=== PATIENT | male | born 1985 ===

== ENCOUNTER 2020-06-01 05:03 | Day surgery (SDC) | payer OTHER ==
[2020-06-01] VITALS (8 sets, daily range): BP systolic 92–115; BP diastolic 55–69
[~2020-06-01] VITALS: Ht 175.3 cm; Wt 81.0 kg
[~2020-06-01 05:03] MED LIST: ACET-2119 PO; IBUP-1984 PO; LEVA0.6319 NEB; OMEP40CA13 PO; ringers solution, lacted 1,000 ML IV SCH
[2020-06-01] MEDS ORDERED: ceFAZolin 2gm in dextrose, iso 50 ML IV ONE (05:30)
[2020-06-01] MEDS ORDERED: famotidine 20mg tablet PO ONE (05:30)
[2020-06-01 07:49] LABS: BASOPHILS # (AUTO) 0.1 X10'3 (0-0.2); BASOPHILS % (AUTO) 1.2 % (0-1); EOSINOPHILS # (AUTO) 0.1 X10'3 (0-0.9); EOSINOPHILS % (AUTO) 1.5 % (0-6); HEMATOCRIT 39.5 % (42.0-52.0); HEMOGLOBIN 13.3 g/dl (14.0-17.9); LYMPHOCYTES # (AUTO) 1.2 X10'3 (1.1-4.8); LYMPHOCYTES % (AUTO) 27.7 % (21-51); MEAN CORPUSCULAR HGB CONC 33.6 g/dL (33.0-36.5); MEAN CORPUSCULAR VOLUME 89.1 FL (78-98); MEAN PLATELET VOLUME 7.6 FL (7.4-10.4); MONOCYTES # (AUTO) 0.5 X10'3 (0-0.9); MONOCYTES % (AUTO) 11.4 % (2-12); NEUTROPHILS # (AUTO) 2.6 X10'3 (1.8-7.7); NEUTROPHILS % (AUTO) 58.2 % (42-75); PLATELET COUNT 243 X10'3 (140-440); RED BLOOD COUNT 4.43 X10'6 (4.70-6.10); RED CELL DISTRIBUTION WIDTH 14.5 % (11.5-14.5); WHITE BLOOD COUNT 4.4 X10'3 (4.5-11.0)
[2020-06-01 08:05] LABS: ALANINE AMINOTRANSFERASE 84 U/L (12-78); ALBUMIN 4.3 G/DL (3.4-5.0); ALBUMIN/GLOBULIN RATIO 1.4 (1.1-1.5); ALKALINE PHOSPHATASE 74 IU/L (46-116); ANION GAP 8 (8-16); ASPARTATE AMINO TRANSFERASE 38 U/L (10-37); BILIRUBIN,TOTAL 0.6 MG/DL (0.1-1.0); BLOOD UREA NITROGEN 15 MG/DL (7-18); BUN/CREATININE RATIO 17.9 (5.4-32.0); CALCIUM 8.8 MG/DL (8.5-10.1); CHLORIDE 106 MMOL/L (99-107); CREATININE 0.84 MG/DL (0.60-1.10); GLUCOSE 98 MG/DL (70-104); POTASSIUM 3.9 MMOL/L (3.5-5.1); SODIUM 141 MMOL/L (135-145); TOTAL CARBON DIOXIDE 26.9 MMOL/L (24-32); TOTAL PROTEIN 7.4 G/DL (6.4-8.2); eGFR > 90 ML/MIN
[2020-06-01] MEDS ORDERED: epiNEPHrine 1 mg/ml 30ml MDV ONE (09:24)
[2020-06-01] MEDS ORDERED: BUPIVAcaine/PF 2.5mg/ml (0.25%) 10ml vial ONE (09:58)
[2020-06-01] MEDS ORDERED: fentaNYL/PF 50MCG/1 ML 2ML syringe ONE (10:14)
[2020-06-01] MEDS ORDERED: MIDAZolam 5mg/5ml vial ONE (10:15)
[2020-06-01] MEDS ORDERED: ringers solution, lacted 1,000 ML IV SCH (11:26)
[2020-06-01] MEDS ORDERED: meperidine/PF 25mg/ml syringe IV PRN ×3 (11:30)
[2020-06-01] MEDS ORDERED: proCHLORperazine 10 MG/2 ml inj IV PRN (11:30)
[2020-06-01] MEDS ORDERED: morphine 4 MG/ML inj SYRINge IV PRN (11:30)
[2020-06-01] MEDS ORDERED: ondansetron/PF 4mg/2ml inj IV PRN (11:30)
[2020-06-01] MEDS ORDERED: morphine 2 MG/ML inj. syringe IV PRN (11:30)
[2020-06-01] MEDS ORDERED: dexamethasone sod phosphate 4mg/ml inj. ONE (11:32)
[2020-06-01] MEDS ORDERED: propofol inj 20 ML IV ONE (11:32)
--- NOTE | 2020-06-01 11:55 | NUR ---
Received from OR via BED , accompanied by Anesthesiologist DR FRIEND and report given by Anesthesiolgist. PATIENT WAKING UP, DENIES PAIN, V/S WNL, NEUROVASCULAR CHECKS INTACT, 20G PIV RUE , DRESSING TO LEFT SHOULDER CDI W/ COLD POWDER PACK CDI. 2 GUARDS AT BEDSIDE
--- NOTE | 2020-06-01 12:45 | NUR ---
PATIENT A&OX4, DENIES PAIN, V/S WNL, NEUROVASCULAR CHECKS INTACT, 20G PIV RUE , DRESSING TO LEFT SHOULDER CDI W/ COLD POWDER PACK CDI. 2 GUARDS AT BEDSIDE. RFS FORM GIVEN W/ INSTRUCTIONS. PATIENT D/C TO LONG-TERM WITH 2 GUARDS.
== END 2020-06-01 12:45 ==
LOC: PAS 05:03 → EEVIPCON 09:45 → PAS 12:45
PROVIDERS: ATTEND Orthopaedic Surgery
DX: S46.012A Strain of muscle(s) and tendon(s) of the rotator cuff of left shoulder, initial encounter (principal); G89.18 Other acute postprocedural pain; K21.9 Gastro-esophageal reflux disease without esophagitis; J45.909 Unspecified asthma, uncomplicated; B18.2 Chronic viral hepatitis C; E78.49 Other hyperlipidemia; E66.9 Obesity, unspecified; Z68.26 Body mass index [BMI] 26.0-26.9, adult; Z98.890 Other specified postprocedural states; Z87.891 Personal history of nicotine dependence; Z79.899 Other long term (current) drug therapy; F12.90 Cannabis use, unspecified, uncomplicated; F15.90 Other stimulant use, unspecified, uncomplicated; Z80.0 Family history of malignant neoplasm of digestive organs; Z80.42 Family history of malignant neoplasm of prostate; Z83.3 Family history of diabetes mellitus; Z82.49 Family history of ischemic heart disease and other diseases of the circulatory system; X58.XXXA Exposure to other specified factors, initial encounter; Y93.89 Activity, other specified; Y92.89 Other specified places as the place of occurrence of the external cause; Y99.8 Other external cause status
CPT/HCPCS: 29827; 36415; 64415; 76942; 80053; 85025; C1713; J0171; J1100; J2250; J2704; J3010; J3490; A4215; A4565; A4618; A7000; J7120